=== PATIENT | female | born 1995 | race Caucasian/White ===

== ENCOUNTER 2024-06-20 20:47 | Emergency (ER) | payer SELFPAY ==
[~2024-06-20] VITALS: Ht 160 cm; Wt 80.0 kg
[2024-06-20 21:29] VITALS: TEMP 98.1
[2024-06-20] MEDS ORDERED: fentaNYL 50 MCG/ML 2 ML VIAL IV ONE (22:00)
[2024-06-20 22:41] LABS: BASO # 0.1 K/mm3 (0.0-0.2); BASO % 0.3 % (0.0-2.0); EOS % 0.1 % (0.0-4.0); GRAN # 14.9 K/mm3 (1.4-6.5); GRAN % 83.4 % (42.2-75.2); HEMOGLOBIN 14.2 g/dl (12.5-16.0); LYMPH # 1.6 K/mm3 (1.2-3.4); MEAN CELL VOLUME 84 fl (80.0-100.0); MEAN CORPUSCULAR HEMOGLOBIN 29 pg (27-31); MEAN CORPUSCULAR HGB CONC 35 g/dl (33.0-37.0); MEAN PLATELET VOLUME 11.9 fl (7.4-10.4); MONO # 1.2 K/mm3 (0.1-0.6); MONO % 6.8 % (1.7-9.3); PLATELET COUNT 280 K/mm3 (130-400); REDCELL DISTRIBUTION WIDTH-CV 12.7 % (11.5-14.5)
[2024-06-20] MEDS ORDERED: Ondansetron 4 MG/2 ML VIAL IV ONE (22:45)
[2024-06-20 22:59] LABS: ALBUMIN 4.2 g/dL (3.5-5.0); BILIRUBIN,TOTAL 0.5 mg/dL (0.2-1.2); CALCIUM 9.4 mg/dL (8.4-10.2); CREATININE, serum 0.7 mg/dL (0.57-1.11); POTASSIUM 3.6 mEq/L (3.5-4.5); TOTAL PROTEIN 7.8 g/dl (6.2-8.1)
[2024-06-20] MEDS ORDERED: Iohexol 300 - 100 ML VIAL IV ONE (23:16)
[2024-06-20] MEDS ORDERED: NS 50 ML IV ONE (23:17)
[2024-06-21] MEDS ORDERED: NAPROSYN500 MG PO (00:08)
[2024-06-21] MEDS ORDERED: Ketorolac 15 MG/ML VIAL IV ONE (00:15)
[2024-06-21 00:40] VITALS: BP 118/84; PULSE 98
== END 2024-06-21 00:40 | disposition home or self-care (01) ==
LOC: COL.ER 20:47
PROVIDERS: Emergency Medicine
DX: S09.90XA Unspecified injury of head, initial encounter (principal); S10.93XA Contusion of unspecified part of neck, initial encounter; S40.022A Contusion of left upper arm, initial encounter; S40.021A Contusion of right upper arm, initial encounter; S20.219A Contusion of unspecified front wall of thorax, initial encounter; S70.12XA Contusion of left thigh, initial encounter; Y04.8XXA Assault by other bodily force, initial encounter; Y92.009 Unspecified place in unspecified non-institutional (private) residence as the place of occurrence of the external cause
CPT/HCPCS: J1885; J2405; J3010; Q9967